=== PATIENT | female | born 1980 | race Hispanic/Latino ===

== ENCOUNTER 2019-04-03 10:24 | Emergency (ER) | payer MEDICAID, OTHER ==
[2019-04-03 10:49] LABS: APPEARANCE,URINE Clear (CLEAR); BILIRUBIN,URINE Negative (NEGATIVE); COLOR,URINE Yellow (YELLOW); GLUCOSE, URINE (UA) Negative (NEGATIVE); KETONES,URINE Negative (NEGATIVE); LEUKOCYTE ESTERASE ,URINE Negative (NEGATIVE); NITRATE,URINE Negative (NEGATIVE); OCCULT BLOOD,URINE Negative (NEGATIVE); PH,URINE 6.5 (5.0-8.0); PROTEIN,URINE Negative (NEGATIVE); UROBILINOGEN,URINE 0.2 mg/dL (0.2-1.0)
[2019-04-03 10:52] LABS: HCG,QUAL RESULT NEGATIVE (NEGATIVE)
[2019-04-03 10:56] LABS: AMPHET/METH SCREEN,URINE NEGATIVE (NEGATIVE); BARBITURATE SCREEN, URINE NEGATIVE (NEGATIVE); BENZODIAZEPINES SCREEN,URINE NEGATIVE (NEGATIVE); CANNABINOID SCREEN,URINE NEGATIVE (NEGATIVE); COCAINE SCREEN,URINE NEGATIVE (NEGATIVE); OPIATE SCREEN,URINE NEGATIVE (NEGATIVE); PHENCYCLIDINE SCREEN,URINE NEGATIVE (NEGATIVE)
[2019-04-03] MEDS ORDERED: SODIUM CHLORIDE 0.9% 1000ML 1,000 ML IV ONE (11:26)
[2019-04-03] MEDS ORDERED: ACETAMINOPHEN 325 MG TAB ONE (11:26)
[2019-04-03 11:31] LABS: BASOPHILS % (AUTO) 1.6 % (0.0-5.0); EOSINOPHILS % (AUTO) 1.4 % (0.0-8.0); HEMATOCRIT 43.5 % (36-48); LYMPHOCYTES % (AUTO) 20.7 % (21.0-51.0); MEAN CORPUSCULAR HEMOGLOBIN 27.8 pg (27.0-33.0); MEAN CORPUSCULAR HGB CONC 33.3 g/dL (32.0-36.0); MEAN CORPUSCULAR VOLUME 83.5 fL (79-99); PLATELET COUNT (AUTO) 316 K/uL (130-400); RED BLOOD CELL COUNT(AUTO) 5.21 MIL/uL (4.00-5.50); RED CELL DISTRIBUTION WIDTH 14.3 % (11.0-15.5)
[2019-04-03 11:44] LABS: CREATININE 0.8 mg/dL (0.5-1.5); POTASSIUM 3.9 mmol/L (3.5-5.1)
[2019-04-03 11:51] LABS: BILIRUBIN,TOTAL 0.7 mg/dL (0.2-1.0)
== END 2019-04-03 13:26 | disposition home or self-care (01) ==
LOC: EDH 10:24
DX: R50.9 Fever, unspecified (principal); R42 Dizziness and giddiness; Z72.0 Tobacco use
CPT/HCPCS: 36415; 70450; 80053; 80305; 81003; 81025; 82140; 83605; 84145; 85025; 87804 ×2; 93005; 96360; 96361; 99285; G0480; J7030

== ENCOUNTER 2022-01-19 12:07 | Emergency (ER) | payer MEDICAID ==
[~2022-01-19] VITALS: Ht 162.6 cm; Wt 71.7 kg
[2022-01-19 12:14] VITALS: BP 129/88
[2022-01-19] MEDS ORDERED: ACETAMINOPHEN 500 MG TABLET PO STA (12:25)
== END 2022-01-19 13:28 | disposition left against medical advice (07) ==
LOC: EDH 12:07
DX: R51.9 Headache, unspecified (principal); M54.2 Cervicalgia; F41.9 Anxiety disorder, unspecified; F32.A Depression, unspecified; I10 Essential (primary) hypertension; Y08.89XA Assault by other specified means, initial encounter; Y93.89 Activity, other specified; Y92.89 Other specified places as the place of occurrence of the external cause; Y99.8 Other external cause status

== ENCOUNTER 2024-08-20 09:13 | Emergency (ER) | payer BC, MEDICAID ==
[~2024-08-20] VITALS: Ht 162.6 cm; Wt 71.2 kg
[2024-08-20] MEDS: LACTATED RINGERS 1000ML 1,000 ML IV ONE (10:07)
[2024-08-20] MEDS: diazePAM 5 MG TAB PO STA (10:07)
[2024-08-20 10:11] LABS: BASOPHILS # (AUTO) 0.08 K/uL (0.00-0.20); EOSINOPHILS # (AUTO) 0.07 K/uL (0.00-0.70); EOSINOPHILS % (AUTO) 0.9 % (0.0-8.0); HEMATOCRIT 38.5 % (36-48); IMMATURE GRANULOCYTE ABSOLUTE 0.04 K/uL (0-1); LYMPHOCYTES # (AUTO) 1.2 K/uL (1.0-4.8); MEAN CORPUSCULAR HEMOGLOBIN 26.4 pg (27.0-33.0); MEAN CORPUSCULAR HGB CONC 31.4 g/dL (32.0-36.0); MEAN CORPUSCULAR VOLUME 83.9 fL (79-99); MONOCYTES # (AUTO) 0.5 K/uL (0.1-1.0); MONOCYTES % (AUTO) 6.5 % (3.0-13.0); NEUTROPHILS % (AUTO) 76.1 % (40.0-77.0); PLATELET COUNT (AUTO) 351 K/uL (130-400); RED BLOOD CELL COUNT(AUTO) 4.59 MIL/uL (4.00-5.50); RED CELL DISTRIBUTION WIDTH 13.5 % (11.0-15.5); WHITE BLOOD COUNT (AUTO) 7.9 K/uL (4.8-10.8)
[2024-08-20 10:21] LABS: CREATININE 0.8 mg/dL (0.5-1.0); POTASSIUM 3.7 mmol/L (3.5-5.1)
--- NOTE | 2024-08-20 10:29 | HMCIMG ---
Exam Type: CHEST 1VW Clinical Information: cp Comparison: None Findings: The lungs are clear of infiltrates. The heart is normal in size. The bony and soft tissue structures of the chest are unremarkable. Impression: Clear lungs.
[2024-08-20 10:30] LABS: APPEARANCE,URINE CLEAR (CLEAR); BILIRUBIN,URINE NEGATIVE (NEGATIVE); COLOR,URINE COLORLESS (YELLOW); GLUCOSE, URINE (UA) NEGATIVE (NEGATIVE); KETONES,URINE NEGATIVE (NEGATIVE); LEUKOCYTE ESTERASE ,URINE NEGATIVE Leu/uL (NEGATIVE); NITRATE,URINE NEGATIVE (NEGATIVE); OCCULT BLOOD,URINE NEGATIVE (NEGATIVE); PROTEIN,URINE NEGATIVE (NEGATIVE); UROBILINOGEN,URINE 0.2 mg/dL (0.2-1.0)
[2024-08-20 10:38] LABS: AMPHET/METH SCREEN,URINE NEGATIVE (NEGATIVE); BARBITURATE SCREEN, URINE NEGATIVE (NEGATIVE); BENZODIAZEPINES SCREEN,URINE NEGATIVE (NEGATIVE); CANNABINOID SCREEN,URINE NEGATIVE (NEGATIVE); COCAINE SCREEN,URINE NEGATIVE (NEGATIVE); OPIATE SCREEN,URINE NEGATIVE (NEGATIVE); PHENCYCLIDINE SCREEN,URINE NEGATIVE (NEGATIVE)
[2024-08-20 10:40] LABS: ADD UA MICROSCOPIC NO
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
[2024-08-20 11:28] VITALS: BP 139/90; PULSE 76; RESP 18; TEMP 98.6; O2SAT 100
--- NOTE | 2024-08-20 11:57 | EKG ---
[facility] Test Date: 2024-08-20 Test Time: 10:00:36 Pat Name: DEANDRE RG Department: ED Room: Gender: F [employer]: [id number] : 1980 Requested By: RATNA AGUIRRE Order Number: [id number] Reading MD: Neal Hines Measurements Intervals [place] Rate: 76 P: 16 AK: 160 QRS: -2 QRSD: 90 T: 5 QT: 377 QTc: 424 Interpretive Statements Sinus rhythm Compared to ECG 04/03/2019 11:23:04 Left-axis deviation no longer present Electronically Signed On 08-20-2024 17:34:38 CDT by Neal Hines Please click the below link to view image of tracing.
== END 2024-08-20 11:31 | disposition home or self-care (01) ==
LOC: EDH 09:13 → EEVIPCON 09:13 → EDH 11:31
DX: F41.9 Anxiety disorder, unspecified (principal)
CPT/HCPCS: 99284; 96360; 71045; 84484; 80048; 80305; 85025; 36415; 93005; 81003; J7120